=== PATIENT | female | born 1960 | race Hispanic/Latino ===

== ENCOUNTER 2017-11-21 06:00 | Day surgery (SDC) | payer BC ==
[2017-11-21] MEDS ORDERED: PROPOFOL 200 MG/20 ML VIAL IV ONE ×2 (07:17→08:14)
[2017-11-21] MEDS ORDERED: NA CHLORIDE 0.9% 1,000 ML ONE ×2 (07:17→07:51)
[2017-11-21] MEDS ORDERED: FENTANYL CITR 100 MCG/2 ML ONE (07:17)
[2017-11-21] MEDS ORDERED: MIDAZOLAM HCL 2 MG/2 ML INJ ONE (07:17)
[2017-11-21] MEDS: LIDOCAINE 1% W/EPI 1:100,000 MDV 50 ML VIAL ONE ×2 (07:27→08:04)
[2017-11-21] MEDS ORDERED: KETOROLAC 30 MG/ML INJ ONE (08:29)
[2017-11-21] MEDS ORDERED: IBUPROFEN 200 MG TAB PO ONE (09:02)
--- NOTE | 2017-11-21 19:42 | OP ---
Date of Procedure: 11/21/2017 Surgeon: Gini Bishop MD Preoperative Diagnoses: 1.Pelvic pain. 2.Postmenopausal bleeding and possible endometrial polyp on ultrasound. Postoperative Diagnoses: 1.Endometrial polyps. 2.Pelvic pain. 3.Postmenopausal bleeding and possible endometrial polyp on ultrasound. Procedures Performed: Operative hysteroscopy, polypectomy, dilation and curettage. Anesthesia: MAC plus paracervical block. Specimens: Endometrial polyp and curettings. Complications: None. Drains: None. Condition: The patient is stable. Ebl: Minimal. Indications: The patient is a 57-year-old referred to [facility] for pelvic pain. She also was noted to hav e uterovaginal prolapse in mostly anterior compartment and mild apex. She was evaluated with transva ginal ultrasound. No other abnormalities were found on the pelvic exam. On ultrasound, there appear ed to be possible endometrial polyp, so plan was made to evaluate the polyp by removal of biopsy to r ule out endometrial adenocarcinoma or atypia. Description Of Procedure: After informed consent was verified, patient was brought to the OR. She w as placed in supine fashion on operating table. After general anesthesia was given, she was placed i n dorsal lithotomy position using Drake stirrups. Pelvic exam was performed and POP-Q is as follows, -1, 0, -3, 4 cm, moderate 7, -2, -2, and -4. That is a stage 2 anterior wall prolapse and stage 1 u terine prolapse. Findings: POP-Q is as follows, -1, 0, -3, 4 cm, moderate 7, -2, -2, and -4. Procedure In Detail: The patient was injected with 1% lidocaine mixed with 1:100,000 epinephrine, 10 cc at 12 o'clock position on the cervix. Anterior lip was grasped with 2 Allis clamps at 4 and 8 o' clock position, 5 cc each for paracervical block. Then prep x3 with Betadine was done. Direct hyste roscopy with a SlimLine hysteroscope with normal saline and 30-degree lens were done. After entering the uterine cavity, there was an endometrial polyp that was visualized at the right cornual end of t he fundus, so scope was pulled out, and this was changed to an operative sheath with polyp scissors t hrough it. Then this was reinserted into the uterus and with normal saline distention medium on a pr essure pump, the polypectomy was performed with the entire polyp that was detached from the bottom. It was densely adhered to the wall and after all this was removed, then the scope was removed. Vanesa davenport's forceps were taken to retrieve the polyp. The scope was replaced to make sure that the entire p olyp was removed and it was. Then endometrial curettings were performed with a #1 curette. There wa s very scant amount of tissue that was obtained. All the instruments were removed. Instrument, need le, and sponge counts were done and were correct at the end of the case. The patient tolerated this procedure well. She will follow up with me in 1 week for results. XIOMARA/CASSANDRA Voice ID: [id number] Report ID: [id number]
== END 2017-11-21 09:55 | disposition home or self-care (01) ==
LOC: OR 06:00
PROVIDERS: ATTEND Obstetrics & Gynecology
PROC: 0UDB7ZX Extraction of Endometrium, Via Natural or Artificial Opening, Diagnostic (ICD-10-PCS; 2017-11-21)
PROC: 0UJD8ZZ Inspection of Uterus and Cervix, Via Natural or Artificial Opening Endoscopic (ICD-10-PCS; 2017-11-21)
PROC: 0UB97ZX Excision of Uterus, Via Natural or Artificial Opening, Diagnostic (ICD-10-PCS; principal; 2017-11-21 07:30)
DX: N95.0 Postmenopausal bleeding (principal); E11.9 Type 2 diabetes mellitus without complications; I10 Essential (primary) hypertension; Z79.84 Long term (current) use of oral hypoglycemic drugs; R10.2 Pelvic and perineal pain; N84.0 Polyp of corpus uteri
CPT/HCPCS: 82962; 88305; J2250; J3010; J7030

== ENCOUNTER 2018-07-24 11:11 | Emergency (ER) | payer BC ==
[2018-07-24 11:50] LABS: Absolute Lymphocytes (CBC) 2.4 K/uL (0.7-4.9); Absolute Monocytes 0.7 K/uL (0.1-1.3); Basophils % 0.5 % (0-1.3); Hematocrit 42.2 % (36.0-45.0); MPV 7.1 fL (7.6-11.3); Monocytes % 6.4 % (3.3-12.3)
[2018-07-24] MEDS ORDERED: FENTANYL CITR 100 MCG/2 ML ONE (11:52)
[2018-07-24] MEDS ORDERED: SUCRALFATE 1GM/10ML UCUP PO ONE (12:00)
[2018-07-24 12:16] LABS: ALT/SGPT 28 U/L (12-78); AST/SGOT 11 U/L (15-37); Albumin 3.8 g/dL (3.4-5.0); Alkaline Phosphatase 135 U/L (45-117); BUN Blood Urea Nitrogen 12 mg/dL (7-18); Bicarbonate 26 mmol/L (21-32); Bilirubin Direct < 0.1 mg/dL (0-0.2); Bilirubin Total 0.3 mg/dL (0.2-1.0); Glucose Level 221 mg/dL (74-106); Lipase 71 U/L (73-393); Potassium 3.9 mmol/L (3.5-5.1); Protein, Total 8.2 g/dL (6.4-8.2); Sodium Level 139 mmol/L (136-145)
--- NOTE | 2018-07-24 14:00 | RAD REPORT ---
EXAM DESCRIPTION: CT - Abdomen Pelvis W Contrast - 07/24/2018 1:47 pm CLINICAL HISTORY: Abdominal pain COMPARISON: CT June 29 TECHNIQUE: Biphasic, helical CT imaging of the abdomen and pelvis was performed following 100 ml non -ionic IV contrast. Oral contrast was given. All CT scans are performed using dose optimization technique as appropriate and may include automated exposure control or mA/KV adjustment according to patient size. FINDINGS: No suspicious findings in the lung bases. The liver, spleen, and pancreas show no suspicious findings. Liver does show a borderline to mild fat ty infiltration pattern. No gallbladder or biliary tree abnormality. Symmetric renal function is seen with no hydronephrosis or suspicious renal mass. No pyelonephritis o r acute parenchymal process. No bladder abnormalities. No adrenal abnormalities. Uterus and ovaries s how no suspicious findings. No gastric dilatation or wall thickening. Stomach is well filled with food. A few prominent small bow el loops are present without dilatation or obstruction findings. No focal mass or wall thickening. No acute colon finding seen. The appendix is normal. Mild sigmoid diverticulosis present. No free air, free fluid or inflammatory stranding. No hernia, mass or bulky lymphadenopathy. No suspicious bony findings. IMPRESSION: Contrast enhanced CT abdomen and pelvis showing no significant or suspicious finding. Patient has a few minimally prominent small bowel loops. This is nonspecific but could indicate an en teritis.
[2018-07-24] MEDS ORDERED: FAMOTIDINE 20 MG/2 ML VIAL IV ONE (14:33)
[2018-07-24] MEDS ORDERED: HYDROMORPHONE HCL 0.5 MG/0.5 ML INJ ONE (14:33)
--- NOTE | 2018-07-24 14:49 | EDPHYS ---
Physician Documentation [facility] Name: Deborah Parker Age: 57 yrs Sex: Female : 1960 Arrival Date: 07/24/2018 Time: 11:13 Bed 19 Private MD: ED Physician Stephan Arevalo HPI: 07/24 14:28 This 57 yrs old Female presents to ER via Wheelchair with complaints of gs Epigastric Pain. 14:28 The patient presents with abdominal pain in the epigastric area. Onset: The gs symptoms/episode began/occurred this morning. The symptoms do not radiate. Associated signs and symptoms: Pertinent positives: nausea. The symptoms are described as burning. Modifying factors: The symptoms are alleviated by nothing, the symptoms are aggravated by nothing. Severity of pain: At its worst the pain was severe in the emergency department the pain is unchanged. The patient has experienced similar episodes in the past, multiple times. The patient has been recently seen by a physician: a training consultant, with similar presenting complaints. Historical: - Allergies: 11:21 No Known Allergies; tw2 - Home Meds: 11:29 Tresiba FlexTouch U-200 200 unit/mL (3 mL) subcutaneous inpn 20 units SQ daily in tw2 evening [Active]; metformin 1,000 mg Oral tab 1 tab 2 times per day [Active]; glimepiride 4 mg Oral tab 1 tab once daily [Active]; losartan 100 mg oral tab 1 tab once daily [Active]; trazodone 50 mg Oral tab 1 tab once daily [Active]; venlafaxine 75 mg oral cp24 1 cap twice daily [Active]; Crestor 40 mg oral tab 1 tab once daily [Active]; - PMHx: 11:21 Diabetes - IDDM; Hypertension; tw2 - Immunization history:: Adult Immunizations up to date. - Social history:: Smoking status: Patient/guardian denies using tobacco. - Ebola Screening: : Patient denies travel to an Ebola-affected area in the 21 days before illness onset. ROS: 14:28 All other systems are negative. gs Exam: 14:28 Head/Face: Normocephalic, atraumatic. Eyes: Pupils equal round and reactive to light, gs extra-ocular motions intact. Lids and lashes normal. Conjunctiva and sclera are non-icteric and not injected. Cornea within normal limits. Periorbital areas with no swelling, redness, or edema. ENT: Nares patent. No nasal discharge, no septal abnormalities noted. Tympanic membranes are normal and external auditory canals are clear. Oropharynx with no redness, swelling, or masses, exudates, or evidence of obstruction, uvula midline. Mucous membranes moist. Neck: Trachea midline, no thyromegaly or masses palpated, and no cervical lymphadenopathy. Supple, full range of motion without nuchal rigidity, or vertebral point tenderness. No Meningismus. Chest/axilla: Normal chest wall appearance and motion. Nontender with no deformity. No lesions are appreciated. Cardiovascular: Regular rate and rhythm with a normal S1 and S2. No gallops, murmurs, or rubs. Normal PMI, no JVD. No pulse deficits. Respiratory: Lungs have equal breath sounds bilaterally, clear to auscultation and percussion. No rales, rhonchi or wheezes noted. No increased work of breathing, no retractions or nasal flaring. Abdomen/GI: Soft, non-tender, with normal bowel sounds. No distension or tympany. No guarding or rebound. No evidence of tenderness throughout. Back: No spinal tenderness. No costovertebral tenderness. Full range of motion. Skin: Warm, dry with normal turgor. Normal color with no rashes, no lesions, and no evidence of cellulitis. MS/ Extremity: Pulses equal, no cyanosis. Neurovascular intact. Full, normal range of motion. Neuro: Awake and alert, GCS 15, oriented to person, place, time, and situation. Cranial nerves II-XII grossly intact. Motor strength 5/5 in all extremities. Sensory grossly intact. Cerebellar exam normal. Normal gait. 14:28 Constitutional: The patient appears alert, awake. 14:28 Constitutional: The patient appears uncomfortable. Vital Signs: 11:22 BP 134 / 82; Pulse 107; Resp 17; Temp 97.2(TE); Pulse Ox 97% on R/A; Weight 70.31 kg tw2 (R); Height 5 ft. 0 in. (152.40 cm); Pain 10/10; 12:25 BP 112 / 61; Pulse 100; Resp 14; Pulse Ox 97% ; bp 13:30 BP 133 / 89; Pulse 83; Resp 16; Pulse Ox 97% ; bp 14:31 BP 121 / 81; Pulse 91; Resp 14; Pulse Ox 97% ; bp 15:14 BP 120 / 69; Pulse 91; Resp 16; Temp 97.5; Pulse Ox 95% ; bp 11:22 Body Mass Index 30.27 (70.31 kg, 152.40 cm) tw2 MDM: 11:30 Patient medically screened. 14:28 Differential diagnosis: AAA, bowel obstruction, coronary artery disease, non-specific gs abd pain, pancreatitis, Peptic Ulcer Disease. Data reviewed: vital signs, nurses notes, lab test result(s), EKG, radiologic studies. Counseling: I had a detailed discussion with the patient and/or guardian regarding: the historical points, exam findings, and any diagnostic results supporting the discharge/admit diagnosis, the need for outpatient follow up. Response to treatment: the patient's symptoms have markedly improved after treatment, and as a result, I will discharge patient. 07/24 11:31 Order name: Basic Metabolic Panel; Complete Time: 12:17 07/24 11:31 Order name: CBC with Diff; Complete Time: 12:17 07/24 11:31 Order name: Hepatic Function; Complete Time: 12:17 07/24 11:31 Order name: Lipase; Complete Time: 12:17 07/24 13:27 Order name: Troponin (emerg Dept Use Only); Complete Time: 15:00 07/24 13:27 Order name: CT Abd/Pelvis - W/Contrast; Complete Time: 14:07 07/24 11:31 Order name: EKG; Complete Time: 11:31 07/24 11:31 Order name: EKG - Nurse/Tech; Complete Time: 11:33 07/24 11:31 Order name: IV Saline Lock; Complete Time: 11:46 07/24 11:31 Order name: Labs collected and sent; Complete Time: 11:46 Administered Medications: 11:46 Drug: fentaNYL (PF) 25 mcg Route: IVP; Site: right antecubital; bp 12:04 Follow up: Response: Pain is unchanged, physician notified bp 12:04 Drug: CarafATE 1 grams Route: PO; bp 12:32 Follow up: Response: No adverse reaction bp 14:00 Drug: Dilaudid 0.5 mg Route: IVP; Site: right antecubital; bp 15:21 Follow up: Response: No adverse reaction; Pain is decreased bp 14:00 Drug: Pepcid 20 mg Route: IVP; Site: right antecubital; bp Disposition: 07/24/18 14:48 Discharged to Home. Impression: Epigastric pain. - Condition is Stable. - Discharge Instructions: Abdominal Pain, Adult. - Prescriptions for Prilosec 20 mg Oral Capsule, Delayed Release(E.C.) - take 1 capsule by ORAL route 2 times per day; 30 capsule. - Medication Reconciliation Form, Thank You Letter, Antibiotic Education, Prescription Opioid Use form. - Follow up: José Luis Burnett MD; When: 2 - 3 days; Reason: Re-evaluation by your physician. Signatures: Dispatcher [employer] EDMaria Guadalupe Alarcon RN RN tw2 Stephan Arevalo MD MD Akbar Quiroga RN RN bp Corrections: (The following items were deleted from the chart) 15:28 14:48 07/24/2018 14:48 Discharged to Home. Impression: Epigastric pain. Condition is bp Stable. Forms are Medication Reconciliation Form, Thank You Letter, Antibiotic Education, Prescription Opioid Use. Follow up: José Luis Burnett; When: 2 - 3 days; Reason: Re-evaluation by your physician.
--- NOTE | 2018-07-24 14:49 | ER ---
Nurse's Notes [facility] Name: Deborah Parker Age: 57 yrs Sex: Female : 1960 Arrival Date: 07/24/2018 Time: 11:13 Bed 19 Private MD: Diagnosis: Epigastric pain Presentation: 07/24 11:16 Presenting complaint: states: she called me from work and said that her stomach tw2 started hurting about 30 minutes ago. Presenting complaint: Patient states: thru external relations manager, [id number], pt holding upper abdomen, i have pain in my stomach and then i feel cold, denies n/v/d just reports the pain. Transition of care: patient was not received from another setting of care. Onset of symptoms was July 24, 2018. Risk Assessment: Do you want to hurt yourself or someone else? Patient reports no desire to harm self or others. Initial Sepsis Screen: Does the patient meet any 2 criteria? No. Patient's initial sepsis screen is negative. Does the patient have a suspected source of infection? No. Patient's initial sepsis screen is negative. Care prior to arrival: None. 11:16 Method Of Arrival: Wheelchair tw2 11:16 Acuity: CHAN 3 tw2 Triage Assessment: 11:20 General: Appears uncomfortable, Behavior is anxious. Pain: Complains of pain in tw2 epigastric area. GI: Reports upper abdominal pain. 11:20 GI: Bowel sounds present X 4 quads. Abd is soft X 4 quads. tw2 Historical: - Allergies: 11:21 No Known Allergies; tw2 - Home Meds: 11:29 Tresiba FlexTouch U-200 200 unit/mL (3 mL) subcutaneous inpn 20 units SQ daily in tw2 evening [Active]; metformin 1,000 mg Oral tab 1 tab 2 times per day [Active]; glimepiride 4 mg Oral tab 1 tab once daily [Active]; losartan 100 mg oral tab 1 tab once daily [Active]; trazodone 50 mg Oral tab 1 tab once daily [Active]; venlafaxine 75 mg oral cp24 1 cap twice daily [Active]; Crestor 40 mg oral tab 1 tab once daily [Active]; - PMHx: 11:21 Diabetes - IDDM; Hypertension; tw2 - Immunization history:: Adult Immunizations up to date. - Social history:: Smoking status: Patient/guardian denies using tobacco. - Ebola Screening: : Patient denies travel to an Ebola-affected area in the 21 days before illness onset. Screenin:28 Abuse screen: Denies threats or abuse. Denies injuries from another. Nutritional bp screening: No deficits noted. Tuberculosis screening: No symptoms or risk factors identified. Fall Risk None identified. Assessment: 11:27 General: Appears in no apparent distress. uncomfortable, obese, Behavior is bp cooperative, appropriate for age, anxious. Pain: Complains of pain in epigastric area. Neuro: Level of Consciousness is awake, alert, obeys commands, Oriented to person, place, time, situation, Appropriate for age. Cardiovascular: No deficits noted. Rhythm is sinus tachycardia. Respiratory: Airway is patent Respiratory effort is even, unlabored, Respiratory pattern is regular, symmetrical. GI: Reports epigastric pain. : No signs and/or symptoms were reported regarding the genitourinary system. EENT: No deficits noted. Derm: No deficits noted. Musculoskeletal: Circulation, motion, and sensation intact. Range of motion: intact in all extremities. 13:30 Reassessment: ALL CURRENT ORDERS COMPLETED, RESULTS AND DISPO PENDING. bp 15:13 Reassessment: PT D/C HOME AMBULATORY WITH FAMILY, DX WITH EPIGASTRIC PAIN. bp Vital Signs: 11:22 BP 134 / 82; Pulse 107; Resp 17; Temp 97.2(TE); Pulse Ox 97% on R/A; Weight 70.31 kg tw2 (R); Height 5 ft. 0 in. (152.40 cm); Pain 10/10; 12:25 BP 112 / 61; Pulse 100; Resp 14; Pulse Ox 97% ; bp 13:30 BP 133 / 89; Pulse 83; Resp 16; Pulse Ox 97% ; bp 14:31 BP 121 / 81; Pulse 91; Resp 14; Pulse Ox 97% ; bp 15:14 BP 120 / 69; Pulse 91; Resp 16; Temp 97.5; Pulse Ox 95% ; bp 11:22 Body Mass Index 30.27 (70.31 kg, 152.40 cm) tw2 ED Course: 11:13 Patient arrived in ED. as 11:20 Triage completed. tw2 11:23 Arm band placed on. tw2 11:26 Stephan Arevalo MD is Attending Physician. gs 11:26 Akbar Quiroga, BETO is Primary Nurse. bp 11:28 Patient has correct armband on for positive identification. Placed in gown. Bed in low bp position. Call light in reach. Side rails up X2. Adult w/ patient. 11:35 EKG done, by engineering technical writer. reviewed by Stephan Arevalo MD. at1 11:49 Initial lab(s) drawn, by il, sent to lab. Inserted saline lock: 22 gauge in right 5 antecubital area, using aseptic technique. Blood collected. 11:50 Basic Metabolic Panel Sent. 5 11:50 CBC with Diff Sent. 5 11:50 Hepatic Function Sent. [facility] 11:50 Lipase Sent. [facility] 13:46 CT completed. Patient tolerated procedure well. Patient moved to CT via wheelchair. [id number] Patient moved back from CT. 13:47 CT Abd/Pelvis - W/Contrast In Process Unspecified. EDMS 14:47 José Luis Burnett MD is Referral Physician. gs 15:15 IV discontinued, intact, bleeding controlled, No redness/swelling at site. Pressure bp dressing applied. 15:19 No provider procedures requiring assistance completed. bp Administered Medications: 11:46 Drug: fentaNYL (PF) 25 mcg Route: IVP; Site: right antecubital; bp 12:04 Follow up: Response: Pain is unchanged, physician notified bp 12:04 Drug: CarafATE 1 grams Route: PO; bp 12:32 Follow up: Response: No adverse reaction bp 14:00 Drug: Dilaudid 0.5 mg Route: IVP; Site: right antecubital; bp 15:21 Follow up: Response: No adverse reaction; Pain is decreased bp 14:00 Drug: Pepcid 20 mg Route: IVP; Site: right antecubital; bp Outcome: 14:48 Discharge ordered by MD. gs 15:17 Discharged to home ambulatory, with family. bp 15:17 Condition: stable 15:17 Discharge instructions given to patient, Instructed on discharge instructions, follow up and referral plans. medication usage, Demonstrated understanding of instructions, follow-up care, medications. 15:28 Patient left the ED. bp Signatures: Dispatcher [employer] EDMS Ese Ortega Amanda, financial service professional EKG Tat1 Maria Guadalupe Boyd, RN RN tw2 Cait Ortega 5 Stephan Arevalo MD MD Akbar Quiroga RN RN bp Linda Segura6
--- NOTE | 2018-07-24 21:40 | EKG ---
Test Date: 2018-07-24 Test Time: 11:31:00 Pattern Marking Supervisor: JOSE MARIA MEASUREMENT RESULTS: Intervals: Rate: 110 CA: 118 QRSD: 60 QT: 324 QTc: 438 [place]: P: 36 CA: 118 QRS: 19 T: 37 INTERPRETIVE STATEMENTS: Sinus tachycardia Cannot rule out Anterior infarct, age undetermined Abnormal ECG No previous ECG available for comparison Electronically Signed On 07-24-18 21:38:24 CDT by Carlos Joyce
== END 2018-07-24 15:28 | disposition home or self-care (01) ==
LOC: ER 11:11
DX: R10.13 Epigastric pain (principal); I10 Essential (primary) hypertension; E11.9 Type 2 diabetes mellitus without complications; Z79.4 Long term (current) use of insulin
CPT/HCPCS: 36415; 74177; 80048; 80076; 83690; 84484; 85025; 93005; J1170; J3010; Q9967